=== PATIENT | female | born 1990 | race Caucasian/White ===

== ENCOUNTER 2018-09-02 20:20 | Day surgery (SDC) | payer SELFPAY ==
[2018-09-02 20:43] VITALS: BP 109/60; TEMP 98.1; BMI 26.4
[2018-09-02] MEDS ORDERED: hydrALAZINE 20 MG/ML VIAL SLOW IVP PRN (20:53)
--- NOTE | 2018-09-02 21:22 | PDOC.LDHP ---
Labor and Delivery H&P Chief complaint: abdominal pain HPI: No care yet LMP: 01/23 (Poss EDC 10/31/18) 28 yo CS X2, no care yet....staying at [facility], was incarcerated prior...here for LAP, no VB, no LOF, no recent sex. No fevers. Review of Symptoms: complete ROS performed and as per HPI Current gestational age (weeks): 31 (3 days) Due date: 10/31/18 Dating criteria: last menstrual period Grav: 3 Para: 2 OB History Details: CS X2 Current complications: none Past Medical History: Hypothyroidism...synthroid 100mcg per day Current medications: other (synthroid) Previous surgical history: other (CS X 2...last was in [place] [facility] (2009)) Allergies/Adverse Reactions: Allergies Allergy/AdvReac Type Severity Reaction Status Date / Time No Known Allergies Allergy Unverified 09/02/18 20:38 Social history: none - Physical Exam Vital signs reviewed and normal: yes (109/60 afevrile 89 16) General: NAD Heart: RRR Lungs: CTAB Abdomen: gravid Extremeties: no edema FHT: category 1 [place] contractions every: no CTX - Assessment 31 weeks by dates, no care...LAP sounds like discomforts of . No CTX. Incarcerated HX. Synthroid. - Plan Plan: observation in L&D (Order complete OB labs, order GC and CHL. Check TSH, UDS, sono for dates and we will check cervical length. If cervix is short, then send FFN. Order CBC and CMP, order RH type.)
[2018-09-02 21:27] LABS: Bilirubin Negative (Negative); Blood, Urine Trace (Negative); Glucose, Urine (Dipstick) Negative (Negative); Leukocyte Negative (Negative); Nitrite Negative (Negative); Protein, Urine (Dipstick) Negative (Neg-Trace); Urobilinogen 0.2 mg/dL (Less than 2)
[2018-09-02 21:28] LABS: Clarity Clear (Clear)
[2018-09-02 21:31] LABS: Bacteria/HPF 1+ HPF (None Seen); RBC/HPF 0-3 HPF (0-3); Squamous Epithelial 0-3 HPF (0-3); WBC/HPF 0-3 HPF (0-3)
[2018-09-02 21:32] LABS: Urine Culture Reflex No No
[2018-09-02] MEDS ORDERED: Acetaminophen 500 MG TAB PO SCH (21:45)
[2018-09-02 21:52] LABS: Amphetamine Not Detected (NotDetected); Barbiturates Screen Not Detected (NotDetected); Benzodiazepine Screen Not Detected (NotDetected); Cocaine Metabolite Screen Not Detected (NotDetected); Medtox Control Line Valid? VALID (VALID); Medtox Reader # READER 1; Methadone Not Detected (NotDetected); Methamphetamine Not Detected (NotDetected); Opiate Screen Not Detected (NotDetected); Oxycodone Screen Not Detected (NotDetected); Phencyclidine (PCP) Not Detected (NotDetected); THC/Cannabinoid Screen Not Detected (NotDetected); Tricyclic Screen Not Detected (NotDetected)
[2018-09-02 22:24] LABS: #Eosinphils 0.2 thou/uL (0.0-0.7); #Lymphocytes 1.9 thou/uL (1.20-3.40); #Monocytes 0.9 thou/uL (0.11-0.59); #Neutrophils 8.7 thou/uL (1.40-6.50); %Basophils 0.3 % (0.0-1.0); %Lymphocytes 15.8 % (21.0-51.0); %Neutrophils 73.9 % (42.0-75.0); Hemoglobin 10.8 g/dL (12.0-16.0); Mean Corpuscular HGB CONC 34.2 g/dL (32.0-36.0); Mean Corpuscular Hemoglobin 31.8 pg (27.0-31.0); Mean Corpuscular Volume 93.1 fL (78.0-98.0); Mean Platelet Volume 8.2 fL (7.4-10.4); Platelet Count 184 thou/uL (130-400); Red Blood Cell (RBC) Count 3.38 mill/uL (4.20-5.40); White Blood Cell (WBC) Count 11.8 thou/uL (4.8-10.8)
--- NOTE | 2018-09-02 22:26 | PDOC.EVN ---
Event Note - Event Note Event Note: SONO results; Cx length: 3.8cm average EGA: 31 weeks with EFW 1886 grams. Fluid normal...baby transverse, moving...placenta posterior, female...all anatomy seen except intracranial. Sono ega agrees so keep her EDC as 10/31/18. So far: CBC and UA and UDS are all normal. CMP and other labs pending. Other labs pending and may follow as outpatient.
--- NOTE | 2018-09-02 22:41 | ULT ---
OB ULTRASOUND: HISTORY: No care. FINDINGS: A single live intrauterine gestation is seen with measurements corresponding to an estimated gestatio nal age of 31 weeks 4 days and an CAMPBELL of 10/31/2018. The estimated weight measures 1886 g (4 l bs 3 oz). This corresponds to the 49th percentile by Hadlock criteria. BIOMETRY: BPD: 7.62 cm (30 weeks 4 days). HC: 28.99 cm (31 weeks 6 days). AC: 28.81 cm (32 weeks 6 days). FL: 5.97 cm (31 weeks 1 day). heart rate measures 153 beats per minute. RANGEL measures 9.9 cm. Cervical length measures 4 cm. Placenta is posteriorly located, on the right, without placenta previa. Head anatomy and spine cannot be satisfactorily evaluated due to position and age. A three-ves michelle cord, cord insertion, kidneys, bladder, stomach, four-chambered heart, lips, nose, upper an d lower extremities, and visualized portions of the spine are unremarkable. IMPRESSION: Single live intrauterine of 31 weeks 4 days estimated gestational age and an estimated date of delivery of 10/31/2018. POS: [facility]
[2018-09-02 22:46] LABS: ALT (SGPT) 9 U/L (8-55); AST (SGOT) 13 U/L (5-34); Albumin 2.7 g/dL (3.5-5.0); Alkaline Phosphatase 50 U/L (40-150); Anion Gap 11 mmol/L (10-20); BUN (Urea Nitrogen) 7 mg/dL (7.0-18.7); Bilirubin, Total 0.2 mg/dL (0.2-1.2); Calc. Creatinine Clearance 166 mL/min (70-130); Calcium 8.2 mg/dL (7.8-10.44); Carbon Dioxide 18 mmol/L (22-29); Chloride 110 mmol/L (98-107); Estimated GFR-MDRD Greater than 90; Globulin 2.4 g/dL (2.4-3.5); Glucose 93 mg/dL (70-105); Potassium 3.7 mmol/L (3.5-5.1); Protein, Total 5.1 g/dL (6.0-8.3); Sodium 135 mmol/L (136-145)
[2018-09-02 23:01] LABS: Syphilis Antibody Nonreactive (Nonreactive); Syphilis Antibody Index 0.03 S/CO (<1.00 Non-Reactive)
[2018-09-02 23:16] LABS: HBSAg Index 0.26 S/CO (0-0.99); HIV (1/2) Antibody/Antigen Non-Reactive (NonReactive); Hep B Surf Ag Non-Reactive S/CO (NonReactive)
[2018-09-04 01:09] LABS: Chlamydia by PCR Not Detected (NotDetected); GC by PCR Not Detected (NotDetected)
== END 2018-09-02 23:01 | disposition home or self-care (01) ==
LOC: L&D/OP 20:20
PROVIDERS: ATTEND Obstetrics & Gynecology
DX: O99.89 Other specified diseases and conditions complicating pregnancy, childbirth and the puerperium (principal); R10.30 Lower abdominal pain, unspecified; O99.283 Endocrine, nutritional and metabolic diseases complicating pregnancy, third trimester; E03.9 Hypothyroidism, unspecified; O09.33 Supervision of pregnancy with insufficient antenatal care, third trimester; Z3A.31 31 weeks gestation of pregnancy; Z79.899 Other long term (current) drug therapy
CPT/HCPCS: 36415; 51701; 76805; 80053; 80306; 81001; 84443; 85025; 86780; 86900; 86901; 87340; 87389; 87491; 87591; 99285

== ENCOUNTER 2018-09-04 14:56 | Day surgery (SDC) | payer SELFPAY ==
[2018-09-04 15:32] VITALS: BMI 26.4
[2018-09-04] MEDS ORDERED: hydrALAZINE 20 MG/ML VIAL SLOW IVP PRN (16:25)
--- NOTE | 2018-09-04 16:54 | PDOC.FPROB ---
FMR OB H&P: HPI - History of Present Illness Chief Complaint: White vaginal discharge History of Present Illness: Mrs. Haile is a 28 y/o female at 32 weeks gestation presenting to L&D today for a white vaginal discharge for the past couple of days; she has received no care and currently has no PCP. She states she has never had similar symptoms before and that "it had an odor maybe like yeast?". She stated it feels like a constantly "wet" feeling between her legs. There is no pain or burning associated with the discharge. Mrs. Haile denies any new sexual partners or concerns for potential for new STIs. Also denies any pain with urination, vaginal bleeding, headache, vision changes, or abdominal/pelvic pain. Mrs. Haile has a history of hypothyroidism which was diagnosed recently while she was incarcerated. She reports her blood tests showed a TSH of 9.9 and she was started on 100mcg levothyroxine but no further tests were done to assess if it was adequate dosing. Her last dose was Sunday due to receiving no prescription from the shelter before being released. Primary Care Physician: No PCP FMR OB H&P: Current - Care : 3 Para: 2 Gestational age: 32 Due date: Dating Criteria: US (3rd Trimester) FMR OB H&P: History - Past Medical History PMH: Hypothyroidism - Unknown Etiology (2018) - OB History OB History: Two Prior C-Sections due to failure to progress in labor. First was 11 days past the CAMPBELL (2007) and second was 10 days past CAMPBELL (2009). No other complications were reported. - [employer] SUPER[employer]OR History [employer]OR History: Prior history of chlamydia "many years ago" which was treated at that time - Social History Social History: Mrs. Haile has been incarcerated since soon after finding out she was . She was released to [facility], a local nursing home [place], this last Sunday. She currently has no insurance and plans to go live in [place] where her two other kids live with her mother. She denies any alcohol, tobacco, or drug use. FMR OB H&P: Medications - Current Home Medications: Medication Instructions Recorded Confirmed Type Levothyroxine Sodium [Synthroid] 100 mcg PO DAILY 09/02/18 09/04/18 History Vitamin 1 tablet PO DAILY 09/04/18 09/04/18 History Allergies/Adverse Reactions: Allergies Allergy/AdvReac Type Severity Reaction Status Date / Time No Known Allergies Allergy Unverified 09/02/18 20:38 FMR OB H&P: ROS - Review of Systems General: reports: fatigue. denies: fever/chills Eyes: denies: vision changes ENT: denies: rhinorrhea, sinus pain/pressure Cardiovascular: reports: edema (reports mild lower extremity edema). denies: chest pain Respiratory: denies: shortness of breath Gastrointestinal: denies: abdominal pain, nausea, vomiting, diarrhea Genitourinary (Female): reports: vaginal discharge. denies: vaginal pain, vaginal bleeding, contractions Musculoskeletal: reports: arthritis/arthralgias (reports occassional pain in her hips and lower back) Neurologic: denies: syncope, loss of counsciousness, headache FMR OB H&P: Vital Signs - Heart Tones Baseline: 145 Variability: moderate Acceleration: present Deceleration: absent Category: category 1 [place] contractions every: No CTXs FMR OB H&P: Physical Exam - Physical Exam General: NAD, awake, alert and oriented HEENT: normocephalic and atraumatic, conjunctiva clear, grossly normal vision, grossly normal hearing Neck: trachea midline Heart: RRR, normal S1/S2, no murmurs/rubs/gallops, other (mild non-pitting lower extremity edema) General: CTAB, no respiratory distress, good air movement, no rales/rhonchi, no wheezing - Pelvic Exam Vulva: normal hair distribution, appropriate cha stage, normal rugae Deviation from normal: moderate white discharge, non-odorous Cervix: no masses, no lesions, no blood FMR OB H&P: A/P - Problem List (1) Vaginal discharge during in third trimester Current Visit: Yes Status: Acute Code(s): O26.893 - OTH RELATED CONDITIONS, THIRD TRIMESTER; N89.8 - OTHER SPECIFIED NONINFLAMMATORY DISORDERS OF VAGINA Assessment and Plan: Mrs. Haile is a 28 y/o at 32 weeks gestation presenting to L&D for vaginal discharge over the past 2 days. She has a history of hypothyroidism managed with 100mcg levothyroxine. VP3 & UA have been collected to r/o any UTI or vaginal infection which could be causing the discharge. In the presence of no findings with these tests it would likely indicate it is physiologic discharge associated with and not pathological in nature. Her history of hypothyroidism in absence of any f/u testing after being started on 100mcg of levothyroxine warrants checking a TSH level w/ reflex T4. Based on findings of TSH screen will send her with a 30 day supply of levothyroxine w/ appropriate dosing In regards to patient's lack of care and insurance discussed with patient about getting her Medicaid application started and placed a consult with Case Management to assist her in this task. Especially since she lacks access to a computer at the nursing home house she currently is staying in. She plans on moving to [facility] where it would be best for her to establish care with a PCP and OBGyn. Disposition: Discharge Home Discussion: Date/Time: 09/04/18 7900 This H&P was discussed with [] and [] who agree with the above documentation and plan.
[2018-09-04 17:02] LABS: Bacteria/HPF 1+ HPF (None Seen); Bilirubin Negative (Negative); Blood, Urine Negative (Negative); Clarity Clear (Clear); Glucose, Urine (Dipstick) Normal (Negative); Leukocyte Negative Leu/uL (Negative); Nitrite Negative (Negative); Protein, Urine (Dipstick) Negative (Neg-Trace); RBC/HPF 0-3 HPF (0-3); Squamous Epithelial None Seen HPF (0-3); Urobilinogen Normal mg/dL (Less than 2); WBC/HPF 0-3 HPF (0-3)
[2018-09-04 17:25] LABS: Thyroid Stimulating Hormone 3.5021 uIU/mL (0.35-4.94)
[2018-09-04 17:55] LABS: Free T4 (Free Thyroxine) 0.74 ng/dL (0.70-1.48)
--- NOTE | 2018-09-05 08:07 | PRG ---
DATE OF SERVICE: 09/04/2018 CHIEF COMPLAINT: Vaginal discharge. PRIMARY OB: None. HISTORY OF PRESENT ILLNESS: The patient is a 28-year-old, G3, P2 female with an intrauterine recently diagnosed by ultrasound at 32 weeks gestation, who is presenting with a white vaginal discharge for the last couple of days. The patient has recently been discharged three days ago from [facility], where she has been since about March and has not had any care thus far except for an evaluation on Sunday, when she was discharged from snf here in the hospital. The patient reports that she feels like this discharge is consistent with a yeast infection, and she also reports that she feels constantly wet. The patient denies any recent illness, fever, fall, headache, chest pain, shortness of breath, nausea, vomiting, diarrhea, constipation, hip problems, knee problems, muscle weakness, any new rashes, any vaginal bleeding, any urinary urgency, or frequency. PAST MEDICAL HISTORY: Hypothyroidism for which she reports she was diagnosed when she first entered the [facility] and has been on 100 mcg of levothyroxine. PAST SURGICAL HISTORY: She has had 2 prior C-sections. 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 SOCIAL HISTORY: The patient has been incarcerated since 03/2018 and has just recently been released to [facility] on Sunday. The plans are to return to [place], where her two other children are once released. ALLERGIES: NO KNOWN DRUG ALLERGIES. MEDICATIONS: vitamins. She had been on 100 mcg of levothyroxine, which she has not been taking since being discharged from snf. LABORATORY DATA: Ob labs: GC and chlamydia are negative. RPR is nonreactive. Hepatitis B surface antigen is negative. HIV is negative. Drug screen is negative. Urinalysis shows 1+ bacteria with no squamous cells per high-power field. TSH 3.5, free T4 0.74. VPIII positive for Debbie, negative for Gardnerella and Trichomonas. REVIEW OF SYSTEMS: Per HPI. PHYSICAL EXAMINATION: VITAL SIGNS: Blood pressure 110/60, heart rate of 88, saturating 97% on room air, and temperature 97.8. GENERAL: She appears to be in no acute distress. She is alert, oriented, cooperative, and pleasant to interact with. HEAD: Normocephalic and atraumatic. LUNGS: Clear to auscultation bilaterally. HEART: Has regular rate and rhythm. ABDOMEN: Gravid and soft. EXTREMITIES: Nontender and nonedematous. EXTERNAL GENITALIA: Vulva is without masses, lesions, or erythema. Vagina is moist. She does have some yeast like discharge, white in color. Cervix is visibly closed and full. heart tracing shows the fetus with a baseline in the 130s with moderate long-term variability, positive 15 x 15 accelerations, no decelerations. She has some irritability on the monitor but not palpable by her. ASSESSMENT AND PLAN: The patient is a 28-year-old female with recently discharge from [facility] and currently in [facility] presenting with vaginal discharge. She has been diagnosed with a yeast infection. She also has evidence of bacteriuria without symptoms. The patient is being discharged back to the [facility] with Macrobid to be taken twice a day for a week. She also has been given a prescription for 30 days levothyroxine 100 mcg daily as this medication seems to have normalized her TSH and free T4. The patient is currently without prescription. She has also been given instructions to get something [id number] for vaginal yeast infection such as Monistat 7 and begin taking that at night as directed. The patient anticipates being discharged from the [facility] in the very near future, where she can return back to [place] to live with her mom and her children. She has been counseled to apply as soon as possible for Medicaid as she is reaching the end of her and establish care as soon as possible. Job ID: [id number]
== END 2018-09-04 18:10 | disposition home or self-care (01) ==
LOC: L&D/OP 14:56
PROVIDERS: ATTEND Obstetrics & Gynecology
DX: O98.813 Other maternal infectious and parasitic diseases complicating pregnancy, third trimester (principal); B37.3 Candidiasis of vulva and vagina; O99.89 Other specified diseases and conditions complicating pregnancy, childbirth and the puerperium; R82.71 Bacteriuria; O99.283 Endocrine, nutritional and metabolic diseases complicating pregnancy, third trimester; E03.9 Hypothyroidism, unspecified; Z3A.32 32 weeks gestation of pregnancy
CPT/HCPCS: 36415; 81001; 84439; 84443; 87480; 87510; 87660; 99284

== ENCOUNTER 2018-09-11 10:21 | Day surgery (SDC) | payer SELFPAY ==
[2018-09-11 10:57] VITALS: BMI 26.4
--- NOTE | 2018-09-11 11:40 | PDOC.LDHP ---
Labor and Delivery H&P Chief complaint: abdominal pain HPI: 28 y/o at 32w6d here for left sided sharp, inguinal pain, worse with movement, better with lying on her left side. Has not taken any medication for pain. Denies VB, LOF, ctx, or decreased FM. Was recently treated for UTI and yeast infection. ROS neg for HEENT, cv, pulm, gi, gu, neuro, psych, skin, musculoskeletal or constitutional symptoms other than mentioned above. OB History Details: 2 prior term LTCS for FTP Current complications: none Past Medical History: Hypothyroidism Current medications: pre-krissy vitamins, other (levothyroxine 100mcg, macrobid) Previous surgical history: low tranverse CS (x2) Allergies/Adverse Reactions: Allergies Allergy/AdvReac Type Severity Reaction Status Date / Time No Known Allergies Allergy Verified 09/11/18 10:51 Social history: none - Physical Exam Vital signs reviewed and normal: yes General: NAD, resting Lungs: nonlabored breathing Abdomen: gravid Extremeties: no edema FHT: category 1 (150s, mod variability, + accels, no decels) [place] contractions every: None - Assessment 28 y/o at 32w6d with musculoskeletal discomforts of . status reassuring with reactive NST. UA wnl - Plan -: D/c home with precautions. Advised to keep all appointments, first appointment with [facility] scheduled for Sunday.
[2018-09-11 11:50] LABS: Bacteria/HPF None Seen HPF (None Seen); Bilirubin Negative (Negative); Blood, Urine Negative (Negative); Clarity Clear (Clear); Glucose, Urine (Dipstick) Normal (Negative); Leukocyte Negative Leu/uL (Negative); Nitrite Negative (Negative); Protein, Urine (Dipstick) Negative (Neg-Trace); RBC/HPF None Seen HPF (0-3); Squamous Epithelial 0-3 HPF (0-3); Urobilinogen Normal mg/dL (Less than 2); WBC/HPF 0-3 HPF (0-3)
[2018-09-11 11:52] LABS: Urine Culture Reflex No No
== END 2018-09-11 11:35 | disposition home or self-care (01) ==
LOC: L&D/OP 10:21
PROVIDERS: ATTEND Obstetrics & Gynecology
DX: O26.893 Other specified pregnancy related conditions, third trimester (principal); R10.32 Left lower quadrant pain; O99.283 Endocrine, nutritional and metabolic diseases complicating pregnancy, third trimester; E03.9 Hypothyroidism, unspecified; Z3A.32 32 weeks gestation of pregnancy; Z79.899 Other long term (current) drug therapy
CPT/HCPCS: 51701; 81001; 99283; A4353